=== PATIENT | male | born 1960 | race Caucasian/White ===

== ENCOUNTER 2020-01-19 13:47 | Inpatient (IN) ==
[2020-01-19 14:28] LABS: Basophils # 0.1 K/mcL (0.0-0.2); Basophils % 0.8 %; Eosinophils # 0.1 K/mcL (0.0-0.6); Eosinophils % 1.9 %; Hematocrit 47.9 % (37.5-50.1); Immature Granulocytes % 0.3 % (0-4); Lymphocytes # 3.4 K/mcL (0.6-4.6); Lymphocytes % 47.5 %; Mean Corpuscular HGB Conc 33.4 g/dL (31.6-35.5); Mean Corpuscular Hemoglobin 30.7 pg (28.0-33.3); Mean Corpuscular Volume 91.8 fL (83.0-100.0); Mean Platelet Volume 9.5 fL (9.4-12.4); Monocytes % 14.4 %; Neutrophils # 2.5 K/mcL (1.6-8.9); Platelet Count 238 K/mcL (140-400); Red Blood Count 5.22 M/mcL (4.19-5.50); Red Cell Distribution Width 12.7 % (11.5-14.5); Segmented Neutrophils % 35.1 %; White Blood Count 7.2 K/mcL (4.3-11.1)
[2020-01-19 14:43] LABS: BUN/Creatinine Ratio 18 (6-26); Blood Urea Nitrogen 22 mg/dL (8-23); Calcium 9.5 mg/dL (8.6-10.3); Carbon Dioxide 25 mEq/L (23-29); Chloride 106 mEq/L (98-107); Glucose 98 mg/dL (70-105); Osmolality,Calculated 287 (280-300); Potassium 4.2 mEq/L (3.5-5.1); Sodium 137 mEq/L (136-145); eGFR For African Americans > 60 (> 60); eGFR For Non-African Americans > 60 (> 60)
[2020-01-19 14:46] LABS: Troponin I 0.08 ng/mL (< 0.04)
[2020-01-19] MEDS ORDERED: *HR* Heparin 5,000 UNIT/ML VIAL IVP ONE (15:46)
[2020-01-19] MEDS ORDERED: *HR* Heparin 5,000 UNIT/ML VIAL IVP PRN ×2 (15:46)
[2020-01-19] MEDS ORDERED: Aspirin 325 MG TABLET PO ONE (15:51)
[2020-01-19] MEDS ORDERED: Heparin 25,000UNIT/250ML 1/2NS 25,000 UNIT/250 ML IV.SOLN IVC SCH (16:00)
[2020-01-19] MEDS: Heparin 25,000UNIT/250ML 1/2NS 25,000 UNIT/250 ML IV.SOLN IVC SCH (16:13)
[2020-01-19 16:18] LABS: INR 1.1; Prothrombin Time 12.9 Seconds (9.4-12.1)
[2020-01-19] MEDS ORDERED: Naloxone 0.4 MG/ML INJ IVP PRN (16:40)
[2020-01-19] MEDS ORDERED: Ondansetron 4 MG/2 ML VIAL IVP PRN (16:40)
[2020-01-19] MEDS ORDERED: Perflutren Lipid Microsphere 1.3 ML in 0.9 % Sodium Chloride 8.7 ML IVP PRN (17:16)
[2020-01-20 05:24] LABS: Basophils % 0.6 %; Eosinophils # 0.2 K/mcL (0.0-0.6); Eosinophils % 2.3 %; Hematocrit 44.8 % (37.5-50.1); Hemoglobin 14.9 g/dL (12.9-16.9); Immature Granulocytes % 0.4 % (0-4); Lymphocytes # 3.9 K/mcL (0.6-4.6); Lymphocytes % 55.2 %; Mean Corpuscular HGB Conc 33.3 g/dL (31.6-35.5); Mean Corpuscular Hemoglobin 31.2 pg (28.0-33.3); Mean Corpuscular Volume 93.7 fL (83.0-100.0); Mean Platelet Volume 9.5 fL (9.4-12.4); Monocytes # 0.8 K/mcL (0.0-1.3); Monocytes % 11.1 %; Neutrophils # 2.1 K/mcL (1.6-8.9); Platelet Count 212 K/mcL (140-400); Red Blood Count 4.78 M/mcL (4.19-5.50); Red Cell Distribution Width 12.8 % (11.5-14.5); Segmented Neutrophils % 30.4 %
[2020-01-20 05:44] LABS: BUN/Creatinine Ratio 14 (6-26); Blood Urea Nitrogen 16 mg/dL (8-23); Calcium 8.8 mg/dL (8.6-10.3); Carbon Dioxide 28 mEq/L (23-29); Chloride 105 mEq/L (98-107); Glucose 100 mg/dL (70-105); Osmolality,Calculated 287 (280-300); Potassium 4.4 mEq/L (3.5-5.1); Sodium 138 mEq/L (136-145); eGFR For African Americans > 60 (> 60); eGFR For Non-African Americans > 60 (> 60)
[2020-01-20 05:48] LABS: Troponin I 0.08 ng/mL (< 0.04)
[2020-01-20] MEDS: Loratadine 10 MG TABLET PO SCH (08:39)
[2020-01-20] MEDS: lisinopriL 20 MG TABLET PO SCH (08:39)
[2020-01-20] MEDS ORDERED: *HR* Heparin 10,000 UNIT/10 ML VIAL ONE (14:02)
[2020-01-20] MEDS ORDERED: ISOVUE-370 200 ML INFUS..BTL ONE (14:02)
[2020-01-20] MEDS ORDERED: Heparin 1,000 UNITS/500 mL 500 ML ONE (14:02)
[2020-01-20] MEDS ORDERED: 0.9 % Sodium Chloride 2,000 ML ONE (14:03)
[2020-01-20] MEDS ORDERED: Nitroglycerin 1,000 MCG/10 ML VIAL IV ONE (14:03)
[2020-01-20] MEDS ORDERED: *HR* Midazolam HCl 2 MG/2 ML VIAL ONE (15:16)
[2020-01-20] MEDS ORDERED: *HR* FentaNYL (PF) 100 MCG/2 ML VIAL ONE (15:16)
[2020-01-20] MEDS: carvediloL 6.25 MG TABLET PO SCH (18:15)
[2020-01-20] MEDS: Heparin 25,000UNIT/250ML 1/2NS 25,000 UNIT/250 ML IV.SOLN IVC SCH (18:15)
[2020-01-21] MEDS: carvediloL 6.25 MG TABLET PO SCH ×2 (08:12→17:29)
[2020-01-21] MEDS: Loratadine 10 MG TABLET PO SCH (08:12)
[2020-01-21] MEDS: lisinopriL 20 MG TABLET PO SCH (08:12)
[2020-01-21] MEDS: Aspirin 81 MG TAB.CHEW PO SCH (08:12)
[2020-01-21] MEDS: Heparin 25,000UNIT/250ML 1/2NS 25,000 UNIT/250 ML IV.SOLN IVC SCH (17:46)
[2020-01-22 01:52] LABS: Basophils % 0.4 %; Eosinophils # 0.2 K/mcL (0.0-0.6); Eosinophils % 2.6 %; Hematocrit 45.1 % (37.5-50.1); Immature Granulocytes % 0.3 % (0-4); Lymphocytes # 4.2 K/mcL (0.6-4.6); Lymphocytes % 58.9 %; Mean Corpuscular HGB Conc 33.3 g/dL (31.6-35.5); Mean Corpuscular Hemoglobin 30.9 pg (28.0-33.3); Mean Corpuscular Volume 92.8 fL (83.0-100.0); Mean Platelet Volume 9.4 fL (9.4-12.4); Monocytes # 0.8 K/mcL (0.0-1.3); Monocytes % 10.6 %; Platelet Count 203 K/mcL (140-400); Red Blood Count 4.86 M/mcL (4.19-5.50); Red Cell Distribution Width 12.9 % (11.5-14.5); Segmented Neutrophils % 27.2 %; White Blood Count 7.2 K/mcL (4.3-11.1)
[2020-01-22 02:04] LABS: BUN/Creatinine Ratio 17 (6-26); Blood Urea Nitrogen 19 mg/dL (8-23); Calcium 8.9 mg/dL (8.6-10.3); Carbon Dioxide 26 mEq/L (23-29); Chloride 105 mEq/L (98-107); Glucose 103 mg/dL (70-105); Osmolality,Calculated 287 (280-300); Potassium 4.2 mEq/L (3.5-5.1); Sodium 137 mEq/L (136-145); eGFR For African Americans > 60 (> 60); eGFR For Non-African Americans > 60 (> 60)
[2020-01-22] MEDS: lisinopriL 20 MG TABLET PO SCH (08:22)
[2020-01-22] MEDS: Aspirin 81 MG TAB.CHEW PO SCH (08:22)
[2020-01-22] MEDS: carvediloL 6.25 MG TABLET PO SCH ×2 (08:22→16:12)
[2020-01-22] MEDS: Loratadine 10 MG TABLET PO SCH (08:23)
[2020-01-22] MEDS: Heparin 25,000UNIT/250ML 1/2NS 25,000 UNIT/250 ML IV.SOLN IVC SCH (16:13)
[2020-01-23] MEDS: Loratadine 10 MG TABLET PO SCH (07:56)
[2020-01-23] MEDS: carvediloL 6.25 MG TABLET PO SCH ×2 (07:57→16:08)
[2020-01-23] MEDS: Aspirin 81 MG TAB.CHEW PO SCH (07:57)
[2020-01-23 14:27] LABS: Estimated Average Glucose 126 mg/dl
[2020-01-23 14:42] LABS: Chol/HDL Ratio 2.8 (0-4.9)
[2020-01-23] MEDS ORDERED: Dextrose 50 % in Water (Vial) 30 ML, Sodium Bicarbonate 20 MEQ, Potassium Chloride 15 M... TH ONE (15:00)
[2020-01-23] MEDS ORDERED: Insulin Human Regular 100 UNIT in 0.9 % Sodium Chloride 100 ML IV PRN (15:00)
[2020-01-23] MEDS: Heparin 25,000UNIT/250ML 1/2NS 25,000 UNIT/250 ML IV.SOLN IVC SCH (16:51)
[2020-01-23] MEDS: Chlorhexidine Rinse 15 ML MOUTHWASH MM SCH (21:11)
[2020-01-24] MEDS ORDERED: Dextrose 50 % in Water (Vial) 30 ML, Sodium Bicarbonate 20 MEQ, Lidocaine 1% 5 ML, Insu... TH ONE ×3 (02:00)
[2020-01-24] MEDS ORDERED: Heparin 15,000 UNIT in 0.9 % Sodium Chloride 500 ML IV ONE (02:00)
[2020-01-24 02:06] LABS: Hematocrit 45.8 % (37.5-50.1); Hemoglobin 15.7 g/dL (12.9-16.9); Mean Corpuscular HGB Conc 34.3 g/dL (31.6-35.5); Mean Corpuscular Volume 93.3 fL (83.0-100.0); Mean Platelet Volume 9.6 fL (9.4-12.4); Platelet Count 197 K/mcL (140-400); Prothrombin Time 11.9 Seconds (9.4-12.1); Red Blood Count 4.91 M/mcL (4.19-5.50); Red Cell Distribution Width 12.7 % (11.5-14.5); White Blood Count 7.3 K/mcL (4.3-11.1)
[2020-01-24 02:23] LABS: Albumin 3.8 g/dL (3.5-5.7); Albumin/Globulin Ratio 1.2 (1.1-2.2); Bilirubin,Direct 0.2 mg/dL (0.0-0.2); Bilirubin,Indirect 1.1 mg/dL (0.0-1.0); Bilirubin,Total 1.3 mg/dL (0.3-1.0); Globulin 3.1 g/dL (2.4-3.5); Total Protein 6.9 g/dL (6.4-8.9)
[2020-01-24] MEDS ORDERED: Norepinephrine 4 MG in 0.9 % Sodium Chloride 250 ML IVC PRN (06:00)
[2020-01-24] MEDS: carvediloL 6.25 MG TABLET PO SCH (06:10)
[2020-01-24] MEDS: Chlorhexidine Rinse 15 ML MOUTHWASH MM SCH ×2 (06:11→20:46)
[2020-01-24] MEDS ORDERED: NiCARdipine 2.5 MG/10 ML Syringe IVPB ONE ×2 (06:43→14:53)
[2020-01-24] MEDS ORDERED: *HR* Midazolam HCl 5 MG/5 ML VIAL IVP ONE (06:50)
[2020-01-24] MEDS ORDERED: *HR* FentaNYL (PF) 1,000 MCG/20 ML VIAL ONE (06:50)
[2020-01-24] MEDS ORDERED: *HR* Rocuronium Bromide 50 MG/5 ML VIAL ONE (06:52)
[2020-01-24] MEDS ORDERED: *HR* PHENYLEPHRINE 1,000 MCG/10 ML SYRINGE IVP ONE (06:52)
[2020-01-24] MEDS ORDERED: *HR* Etomidate 20 MG/10 ML AMPUL IVP ONE (06:53)
[2020-01-24] MEDS ORDERED: Famotidine 20 MG/2 ML VIAL ONE (06:53)
[2020-01-24] MEDS ORDERED: Tranexamic Acid 1,000 MG/10 ML VIAL ONE ×2 (06:55→14:03)
[2020-01-24] MEDS ORDERED: Protamine Sulfate 250 MG/25 ML VIAL IVP ONE (06:55)
[2020-01-24] MEDS ORDERED: Calcium Gluconate 1,000 MG/10 ML VIAL ONE (06:55)
[2020-01-24] MEDS: Aspirin 81 MG TAB.CHEW PO SCH (09:02)
[2020-01-24] MEDS: Loratadine 10 MG TABLET PO SCH (09:03)
[2020-01-24] MEDS ORDERED: CeFAZolin Syr 2,000MG/20 ML 2,000 MG/20 ML SYRINGE IVPB ONE (12:00)
[2020-01-24] MEDS ORDERED: Tranexamic Acid 1,000 MG/10 ML VIAL IR ONE (12:49)
[2020-01-24] MEDS ORDERED: Sodium Bicarbonate 50 MEQ/50 ML VIAL IVP ONE (12:49)
[2020-01-24] MEDS ORDERED: *HR* Phenylephrine 10 MG/ML VIAL IVC ONE (12:49)
[2020-01-24] MEDS ORDERED: Lidocaine 2% Syringe 100 MG/5 ML IVP ONE (12:49)
[2020-01-24] MEDS ORDERED: *HR* Heparin 10,000 UNIT/10 ML VIAL IR ONE (12:49)
[2020-01-24] MEDS ORDERED: Albumin Human 25% 25 GM/100 ML IV.SOLN IVPB ONE (12:49)
[2020-01-24] MEDS ORDERED: Mannitol 25% vial 12.5 GM/50 ML VIAL IVPB ONE (12:49)
[2020-01-24] MEDS ORDERED: *HR* Magnesium Sulfate 2 GM/50 ML PIGGYBACK IVPB ONE (12:49)
[2020-01-24 12:55] LABS: ABG Base Excess 0 mEq/L (-2 to 3); ABG Chloride 102 mEq/L (98-107); ABG Glucose 95 mg/dL (60-95); ABG HCO3 30 mEq/L (21-27); ABG Ionized Calcium 1.23 mmol/L (1.15-1.35); ABG Oxygen Saturation 100 % (95-98); ABG PCO2 67 mmHg (35-45); ABG PH 7.25 pH Units (7.32-7.45); ABG PO2 311 mmHg (85-104); ABG TCO2 32 mEq/L (20-26)
[2020-01-24 13:48] LABS: ABG Base Excess 0 mEq/L (-2 to 3); ABG Chloride 106 mEq/L (98-107); ABG Glucose 119 mg/dL (60-95); ABG HCO3 24 mEq/L (21-27); ABG Ionized Calcium 1.02 mmol/L (1.15-1.35); ABG Oxygen Saturation 95 % (95-98); ABG PCO2 35 mmHg (35-45); ABG PH 7.44 pH Units (7.32-7.45); ABG PO2 75 mmHg (85-104); ABG TCO2 25 mEq/L (20-26)
[2020-01-24 14:22] LABS: ABG Base Excess 1 mEq/L (-2 to 3); ABG Chloride 98 mEq/L (98-107); ABG Glucose 200 mg/dL (60-95); ABG HCO3 25 mEq/L (21-27); ABG Ionized Calcium 0.89 mmol/L (1.15-1.35); ABG Oxygen Saturation 100 % (95-98); ABG PCO2 36 mmHg (35-45); ABG PH 7.44 pH Units (7.32-7.45); ABG PO2 462 mmHg (85-104); ABG TCO2 26 mEq/L (20-26)
[2020-01-24] MEDS ORDERED: Albumin Human 5% 0 GM/0 ML IV.SOLN ONE (14:46)
[2020-01-24] MEDS ORDERED: niCARdipine 20 MG/200 ML MLS IVC ONE (14:46)
[2020-01-24 15:07] LABS: ABG Base Excess 1 mEq/L (-2 to 3); ABG Chloride 100 mEq/L (98-107); ABG Glucose 153 mg/dL (60-95); ABG HCO3 26 mEq/L (21-27); ABG Ionized Calcium 0.97 mmol/L (1.15-1.35); ABG Oxygen Saturation 100 % (95-98); ABG PCO2 41 mmHg (35-45); ABG PH 7.41 pH Units (7.32-7.45); ABG PO2 446 mmHg (85-104); ABG TCO2 27 mEq/L (20-26)
[2020-01-24 15:44] LABS: ABG Base Excess -1 mEq/L (-2 to 3); ABG Chloride 103 mEq/L (98-107); ABG Glucose 94 mg/dL (60-95); ABG HCO3 23 mEq/L (21-27); ABG Ionized Calcium 1.22 mmol/L (1.15-1.35); ABG Oxygen Saturation 94 % (95-98); ABG PCO2 35 mmHg (35-45); ABG PH 7.43 pH Units (7.32-7.45); ABG PO2 70 mmHg (85-104); ABG TCO2 24 mEq/L (20-26)
[2020-01-24] MEDS ORDERED: Insulin Regular, Human 100 UNIT/ML IV PRN (16:07)
[2020-01-24] MEDS ORDERED: *HR* Dextrose 50 % in Water (Vial) 50 ML VIAL IVP PRN (16:07)
[2020-01-24] MEDS ORDERED: Potassium Chloride 40 MEQ/200 ML BAG IVPB PRN (16:07)
[2020-01-24] MEDS ORDERED: Calcium Gluconate 1gm/50mL 1 GM/50 ML BAG IVPB PRN (16:09)
[2020-01-24] MEDS ORDERED: Acetaminophen 325 MG TABLET PO PRN (16:09)
[2020-01-24] MEDS ORDERED: *HR* FentaNYL (PF) 100 MCG/2 ML VIAL IVP PRN (16:09)
[2020-01-24] MEDS ORDERED: Sennosides 8.6 MG TABLET PO PRN (16:09)
[2020-01-24] MEDS ORDERED: Acetaminophen 650 MG RECTAL SUPP RC PRN (16:09)
[2020-01-24] MEDS ORDERED: Norepinephrine 4 MG/254 ML IV.SOLN IVC SCH (16:15)
[2020-01-24] MEDS ORDERED: 0.9 % Sodium Chloride w KCl 20 MEQ/1,000 ML MLS IVC SCH (16:15)
[2020-01-24] MEDS ORDERED: Insulin Human Regular 100 UNIT in 0.9 % Sodium Chloride 100 ML IVC SCH (16:15)
[2020-01-24] MEDS: Albumin Human 5% 12.5 GM/250 ML IV.SOLN IVPB PRN ×2 (16:45→17:25)
[2020-01-24 17:01] LABS: ABG Base Excess 2 mEq/L (-2 to 3); ABG HCO3 27 mEq/L (21-27); ABG Oxygen Saturation 100 % (95-98); ABG PCO2 39 mmHg (35-45); ABG PH 7.44 pH Units (7.32-7.45); ABG PO2 412 mmHg (85-104); ABG TCO2 28 mEq/L (20-26); Blood Gas Modality ASSIST CONTROL; Blood Gas VT 500 cc
[2020-01-24 17:07] LABS: Basophils % 0.3 %; Immature Granulocytes % 0.7 % (0-4); Mean Corpuscular Volume 91.2 fL (83.0-100.0); Mean Platelet Volume 9.6 fL (9.4-12.4); Red Cell Distribution Width 12.7 % (11.5-14.5)
[2020-01-24 17:09] LABS: Eosinophils # 0.1 K/mcL (0.0-0.6); Hematocrit 42.6 % (37.5-50.1); Hemoglobin 14.7 g/dL (12.9-16.9); Immature Platelets 2.8 % (1.1-6.1); Lymphocytes # 4.6 K/mcL (0.6-4.6); Lymphocytes % 34.2 %; Mean Corpuscular HGB Conc 34.5 g/dL (31.6-35.5); Mean Corpuscular Hemoglobin 31.5 pg (28.0-33.3); Monocytes % 7.7 %; Neutrophils # 7.6 K/mcL (1.6-8.9); Red Blood Count 4.67 M/mcL (4.19-5.50); Segmented Neutrophils % 56.1 %; White Blood Count 13.5 K/mcL (4.3-11.1)
[2020-01-24 17:13] LABS: Platelet Count 96 K/mcL (140-400)
[2020-01-24 17:21] LABS: INR 1.3
[2020-01-24 17:22] LABS: BUN/Creatinine Ratio 16 (6-26); Blood Urea Nitrogen 17 mg/dL (8-23); Carbon Dioxide 25 mEq/L (23-29); Chloride 105 mEq/L (98-107); Glucose 89 mg/dL (70-105); Magnesium 2.4 mg/dL (1.6-2.6); Osmolality,Calculated 287 (280-300); Potassium 3.7 mEq/L (3.5-5.1); Sodium 138 mEq/L (136-145); eGFR For African Americans > 60 (> 60); eGFR For Non-African Americans > 60 (> 60)
[2020-01-24 17:38] LABS: Reactive Lymphocytes Present (Not Present)
[2020-01-24] MEDS: Furosemide 20 MG/2 ML VIAL IVP SCH (18:16)
[2020-01-24] MEDS: Metoclopramide 10 MG/2 ML VIAL IVP SCH ×2 (18:17→23:45)
[2020-01-24] MEDS: Ketorolac 15 MG/ML VIAL IVP SCH ×2 (18:27→23:45)
[2020-01-24] MEDS: Pantoprazole 40 MG VIAL IVP SCH (18:36)
[2020-01-24] MEDS: Heparin 25,000UNIT/250ML 1/2NS 25,000 UNIT/250 ML IV.SOLN IVC SCH (19:50)
[2020-01-24] MEDS: niCARdipine 20 MG/200 ML MLS IVC SCH ×2 (19:51→20:44)
[2020-01-24 20:34] LABS: ABG Base Excess 0 mEq/L (-2 to 3); ABG HCO3 25 mEq/L (21-27); ABG Oxygen Saturation 97 % (95-98); ABG PCO2 41 mmHg (35-45); ABG PH 7.39 pH Units (7.32-7.45); ABG PO2 88 mmHg (85-104); ABG TCO2 26 mEq/L (20-26); Blood Gas Modality ASSIST CONTROL; Blood Gas VT 500 cc
[2020-01-24] MEDS: *HR* OxyCODONE/APAP 5/325 TABLET PO PRN (20:36)
[2020-01-24 22:23] LABS: ABG Base Excess 1 mEq/L (-2 to 3); ABG HCO3 27 mEq/L (21-27); ABG Oxygen Saturation 96 % (95-98); ABG PCO2 45 mmHg (35-45); ABG PH 7.38 pH Units (7.32-7.45); ABG PO2 82 mmHg (85-104); ABG TCO2 28 mEq/L (20-26)
[2020-01-24] MEDS: CeFAZolin 2 GM/120 ML BAG IVPB SCH (23:46)
[2020-01-25] MEDS: niCARdipine 20 MG/200 ML MLS IVC SCH ×4 (01:04→12:04)
[2020-01-25 04:01] LABS: Basophils % 0.4 %; Eosinophils % 0.2 %; Hematocrit 42.7 % (37.5-50.1); Hemoglobin 14.4 g/dL (12.9-16.9); Immature Granulocytes % 0.4 % (0-4); Immature Platelets 4.5 % (1.1-6.1); Lymphocytes # 1.3 K/mcL (0.6-4.6); Lymphocytes % 13.4 %; Mean Corpuscular HGB Conc 33.7 g/dL (31.6-35.5); Mean Corpuscular Hemoglobin 31.7 pg (28.0-33.3); Mean Corpuscular Volume 94.1 fL (83.0-100.0); Mean Platelet Volume 9.5 fL (9.4-12.4); Monocytes # 1.2 K/mcL (0.0-1.3); Monocytes % 13.2 %; Neutrophils # 6.8 K/mcL (1.6-8.9); Platelet Count 109 K/mcL (140-400); Red Blood Count 4.54 M/mcL (4.19-5.50); Red Cell Distribution Width 12.9 % (11.5-14.5); Segmented Neutrophils % 72.4 %; White Blood Count 9.3 K/mcL (4.3-11.1)
[2020-01-25 04:07] LABS: INR 1.3; Prothrombin Time 14.3 Seconds (9.4-12.1)
[2020-01-25 04:10] LABS: Activated Partial Thrombo Time 29.5 Seconds (26.0-36.0)
[2020-01-25 04:27] LABS: BUN/Creatinine Ratio 15 (6-26); Blood Urea Nitrogen 19 mg/dL (8-23); Calcium 8.5 mg/dL (8.6-10.3); Carbon Dioxide 27 mEq/L (23-29); Chloride 104 mEq/L (98-107); Glucose 128 mg/dL (70-105); Magnesium 2.1 mg/dL (1.6-2.6); Osmolality,Calculated 294 (280-300); Potassium 5.1 mEq/L (3.5-5.1); Sodium 140 mEq/L (136-145); eGFR For African Americans > 60 (> 60); eGFR For Non-African Americans 59 (> 60)
[2020-01-25] MEDS: *HR* OxyCODONE/APAP 5/325 TABLET PO PRN ×3 (05:04→19:58)
[2020-01-25] MEDS: Ketorolac 15 MG/ML VIAL IVP SCH ×4 (05:04→23:46)
[2020-01-25] MEDS: Metoclopramide 10 MG/2 ML VIAL IVP SCH ×4 (05:05→23:46)
[2020-01-25] MEDS: CeFAZolin 2 GM/120 ML BAG IVPB SCH (06:48)
[2020-01-25] MEDS ORDERED: carvediloL 6.25 MG TABLET PO SCH (08:00)
[2020-01-25] MEDS ORDERED: Loratadine 10 MG TABLET PO SCH (09:00)
[2020-01-25] MEDS ORDERED: Aspirin Enteric Coated 81 MG Tablet PO SCH (09:00)
[2020-01-25] MEDS: Furosemide 20 MG/2 ML VIAL IVP SCH ×2 (09:40→16:58)
[2020-01-25] MEDS: Pantoprazole 40 MG VIAL IVP SCH (09:40)
[2020-01-25] MEDS: Chlorhexidine Rinse 15 ML MOUTHWASH MM SCH ×2 (09:41→19:58)
[2020-01-25] MEDS ORDERED: Dextrose Gel 15 GM/37.5 ML TUBE PO PRN ×2 (13:47)
[2020-01-25] MEDS ORDERED: *HR* FentaNYL (PF) 100 MCG/2 ML VIAL IVP PRN (13:47)
[2020-01-25] MEDS ORDERED: Insulin Human Regular 100 UNIT in 0.9 % Sodium Chloride 100 ML IVC SCH (13:47)
[2020-01-25] MEDS ORDERED: Insulin Regular, Human 100 UNIT/ML IV PRN (13:47)
[2020-01-25] MEDS ORDERED: Ondansetron 4 MG/2 ML VIAL IVP PRN (13:47)
[2020-01-25] MEDS ORDERED: Acetaminophen 325 MG TABLET PO PRN (13:47)
[2020-01-25] MEDS ORDERED: Sennosides 8.6 MG TABLET PO PRN (13:47)
[2020-01-25] MEDS ORDERED: D5% in Water 1,000 ML IVC PRN (13:47)
[2020-01-25] MEDS ORDERED: Naloxone 0.4 MG/ML INJ IVP PRN (13:47)
[2020-01-25] MEDS ORDERED: *HR* Dextrose 50 % in Water (Vial) 50 ML VIAL IVP PRN (13:47)
[2020-01-25] MEDS: *HR* Heparin 5,000 UNIT/ML VIAL SQ SCH ×2 (16:57→19:53)
[2020-01-25] MEDS: carvediloL 6.25 MG TABLET PO SCH (16:58)
[2020-01-25] MEDS: Insulin LISPRO 300 UNITS/3 ML VIAL SQ SCH ×2 (17:45→19:58)
[2020-01-26] MEDS: *HR* Heparin 5,000 UNIT/ML VIAL SQ SCH ×2 (05:44→17:01)
[2020-01-26] MEDS: Metoclopramide 10 MG/2 ML VIAL IVP SCH ×3 (05:44→17:00)
[2020-01-26] MEDS: Ketorolac 15 MG/ML VIAL IVP SCH ×3 (05:44→17:00)
[2020-01-26] MEDS: Insulin LISPRO 300 UNITS/3 ML VIAL SQ SCH ×4 (07:26→21:07)
[2020-01-26] MEDS: Aspirin Enteric Coated 81 MG Tablet PO SCH (07:31)
[2020-01-26] MEDS: carvediloL 6.25 MG TABLET PO SCH ×2 (07:31→17:01)
[2020-01-26] MEDS: Chlorhexidine Rinse 15 ML MOUTHWASH MM SCH ×2 (07:31→21:28)
[2020-01-26] MEDS: Pantoprazole 40 MG VIAL IVP SCH (07:31)
[2020-01-26] MEDS: Loratadine 10 MG TABLET PO SCH (07:31)
[2020-01-26] MEDS: Furosemide 20 MG/2 ML VIAL IVP SCH (07:32)
[2020-01-26 12:42] LABS: Basophils % 0.2 %; Hemoglobin 12.9 g/dL (12.9-16.9)
[2020-01-26 12:44] LABS: Eosinophils # 0.1 K/mcL (0.0-0.6); Eosinophils % 1.1 %; Hematocrit 38.4 % (37.5-50.1); Immature Granulocytes % 0.2 % (0-4); Immature Platelets 4.2 % (1.1-6.1); Lymphocytes # 1.8 K/mcL (0.6-4.6); Lymphocytes % 21.1 %; Mean Corpuscular HGB Conc 33.6 g/dL (31.6-35.5); Mean Corpuscular Volume 95.3 fL (83.0-100.0); Mean Platelet Volume 10.3 fL (9.4-12.4); Monocytes % 11.7 %; Neutrophils # 5.6 K/mcL (1.6-8.9); Red Blood Count 4.03 M/mcL (4.19-5.50); Red Cell Distribution Width 12.7 % (11.5-14.5); Segmented Neutrophils % 65.7 %; White Blood Count 8.5 K/mcL (4.3-11.1)
[2020-01-26 12:49] LABS: Platelet Count 99 K/mcL (140-400)
[2020-01-26 12:50] LABS: BUN/Creatinine Ratio 19 (6-26); Blood Urea Nitrogen 27 mg/dL (8-23); Calcium 8.2 mg/dL (8.6-10.3); Carbon Dioxide 30 mEq/L (23-29); Chloride 100 mEq/L (98-107); Glucose 113 mg/dL (70-105); Osmolality,Calculated 290 (280-300); Potassium 4.1 mEq/L (3.5-5.1); Sodium 137 mEq/L (136-145); eGFR For African Americans > 60 (> 60); eGFR For Non-African Americans 52 (> 60)
[2020-01-26 13:36] LABS: Platelet Estimate Decreased (Normal)
[2020-01-27] MEDS: Metoclopramide 10 MG/2 ML VIAL IVP SCH ×4 (00:13→18:14)
[2020-01-27] MEDS: Ketorolac 15 MG/ML VIAL IVP SCH ×5 (00:13→23:13)
[2020-01-27] MEDS: *HR* Heparin 5,000 UNIT/ML VIAL SQ SCH ×2 (06:01→18:13)
[2020-01-27] MEDS: Insulin LISPRO 300 UNITS/3 ML VIAL SQ SCH ×4 (08:00→23:11)
[2020-01-27] MEDS: Aspirin Enteric Coated 81 MG Tablet PO SCH (08:12)
[2020-01-27] MEDS: Chlorhexidine Rinse 15 ML MOUTHWASH MM SCH ×2 (08:12→19:50)
[2020-01-27] MEDS: Pantoprazole 40 MG VIAL IVP SCH (08:12)
[2020-01-27] MEDS: Loratadine 10 MG TABLET PO SCH (08:13)
[2020-01-27] MEDS: carvediloL 6.25 MG TABLET PO SCH ×2 (08:13→18:13)
[2020-01-27] MEDS: *HR* OxyCODONE/APAP 5/325 TABLET PO PRN (19:49)
[2020-01-28 00:58] LABS: Basophils % 0.3 %; Eosinophils # 0.3 K/mcL (0.0-0.6); Eosinophils % 3.4 %; Hematocrit 36.8 % (37.5-50.1); Hemoglobin 12.5 g/dL (12.9-16.9); Immature Granulocytes % 0.4 % (0-4); Lymphocytes # 3.4 K/mcL (0.6-4.6); Lymphocytes % 37.2 %; Mean Corpuscular Hemoglobin 31.6 pg (28.0-33.3); Mean Corpuscular Volume 92.9 fL (83.0-100.0); Mean Platelet Volume 10.2 fL (9.4-12.4); Monocytes # 1.2 K/mcL (0.0-1.3); Monocytes % 12.6 %; Neutrophils # 4.2 K/mcL (1.6-8.9); Platelet Count 164 K/mcL (140-400); Red Blood Count 3.96 M/mcL (4.19-5.50); Red Cell Distribution Width 12.7 % (11.5-14.5); Segmented Neutrophils % 46.1 %; White Blood Count 9.2 K/mcL (4.3-11.1)
[2020-01-28 01:19] LABS: BUN/Creatinine Ratio 22 (6-26); Blood Urea Nitrogen 30 mg/dL (8-23); Calcium 8.5 mg/dL (8.6-10.3); Carbon Dioxide 26 mEq/L (23-29); Chloride 103 mEq/L (98-107); Glucose 112 mg/dL (70-105); Osmolality,Calculated 291 (280-300); Potassium 3.7 mEq/L (3.5-5.1); Sodium 137 mEq/L (136-145); eGFR For African Americans > 60 (> 60); eGFR For Non-African Americans 54 (> 60)
[2020-01-28] MEDS: Ketorolac 15 MG/ML VIAL IVP SCH (05:18)
[2020-01-28] MEDS: *HR* Heparin 5,000 UNIT/ML VIAL SQ SCH (05:18)
[2020-01-28 07:11] VITALS: BP 122/79
[2020-01-28] MEDS: Insulin LISPRO 300 UNITS/3 ML VIAL SQ SCH (08:39)
[2020-01-28] MEDS: Loratadine 10 MG TABLET PO SCH (08:40)
[2020-01-28] MEDS: Pantoprazole 40 MG VIAL IVP SCH (08:40)
[2020-01-28] MEDS: Chlorhexidine Rinse 15 ML MOUTHWASH MM SCH (08:40)
[2020-01-28] MEDS: carvediloL 6.25 MG TABLET PO SCH (08:40)
[2020-01-28] MEDS: Aspirin Enteric Coated 81 MG Tablet PO SCH (08:41)
[2020-01-28] MEDS ORDERED: FLU Vac QV 20-21 (6Month+)/PF 0.5 ML SYRINGE IM ONE (11:49)
== END 2020-01-28 12:50 | disposition home or self-care (01) | DRG 233 ==
LOC: 3BNU 13:47 → EMEROOARM 13:47 → SUATTDRO 16:35 → 3BNU 17:04 → SUATTDRO 01-21 08:13 → ICNU 01-24 08:13 → 2NNU 01-25 18:52
PROVIDERS: ADMIT Internal Medicine; ATTEND Student in an Organized Health Care Education/Training Program